=== PATIENT | male | born 1950 | race Caucasian/White ===

== ENCOUNTER 2018-11-27 13:56 | Emergency (ER) | payer MEDICARE, OTHER ==
[~2018-11-27] VITALS: Ht 175.3 cm; Wt 81.8 kg
[2018-11-27 14:03] VITALS: Ht 175.3 cm; Wt 81.8 kg
[2018-11-27] MEDS ORDERED: BACLOFEN20 M1 PO (16:20)
[2018-11-27] MEDS ORDERED: VOLTAREN75 MG PO (16:20)
[2018-11-27 16:45] VITALS: BP 122/78
== END 2018-11-27 16:45 | disposition home or self-care (01) ==
LOC: D.ER 13:56
DX: S16.1XXA Strain of muscle, fascia and tendon at neck level, initial encounter (principal); Y04.2XXA Assault by strike against or bumped into by another person, initial encounter; Y93.89 Activity, other specified; Y92.89 Other specified places as the place of occurrence of the external cause; S00.01XA Abrasion of scalp, initial encounter